=== PATIENT | male | born 1970 | race Caucasian/White ===

== ENCOUNTER 2022-07-02 15:43 | Emergency (ER) | payer OTHER ==
[~2022-07-02] VITALS: Ht 170.2 cm; Wt 83.0 kg
[2022-07-02 15:50] VITALS: BP 144/91
[2022-07-02] MEDS ORDERED: IBUPROFEN 600 MG TAB PO ONE (15:55)
[2022-07-02] MEDS ORDERED: PROPOFOL 200 MG/20 ML VIAL IV ONE ×2 (16:45→17:30)
--- NOTE | 2022-07-02 17:23 | NUR ---
Sedation consent signed by pt and ERMD. Pt connected to Zoll, BP, ETCo2, on 2LNC. 1723- RT bedside 1724- ERMD bedside. Timeout performed. 1726- Pt RASS 0. Procedure started 10cc Propofol pushed by Dr. Fernandez 1727- Pt RASS -1 1728- 10cc Propofol pushed by Dr. Fernandez 1729- Pt RASS -3 1731- Procedure completed Pt RASS -3 1740- Xray bedside Pt RASS -2 1750- Pt RASS -1 1805- Pt awake, alert, with no complaints. RASS 0 No complications noted. Vital signs- 1721- 131/88, HR 104, 99% 2LNC, 15RR, CO2-31 1725- 137/84, HR 99, 99% 2LNC, 22RR, CO2-32 1730-150/93, HR 105, 100% 2LNC, 20RR CO2- 35 1735- 124/70, HR 85, 99% 2LNC,16RR, CO2- 34 1740-127/69, HR 87, 99% 2LNC, 18RR, CO2- 36 1745-122/70, HR 80, 99% 2LNC, 20RR, CO2-38 1800- 120/74, HR 78, 99% 2LNC, 20RR, CO2- 32 1815- 137/82, HR 83, 98% RA, 18RR, CO2-34
--- NOTE | 2022-07-02 17:45 | NUR ---
REQUEST FOR SERVICE FOR CONSCIOUS SEDATION. PT ON 2 L NASAL CANNULA WITH ETCO2 CO2 MONITOR. CO2 DURING SEDATION WAS 35-39, BLOOD PRESSURE WAS STABLE. SATURATION REMAINED ABOVE 92%. RESPIRATORY RATE 18-25. NO DISTRESS NOTED.
--- NOTE | 2022-07-02 19:30 | NUR ---
RECEIVED AWAKE AND ALERT, S/P LEFT SHOULDER DISLOCATION REDUCTION. MT STATES HE FEELS MUCH BETTER. LEFT ARM SLING IN PLACE.
[2022-07-02] MEDS ORDERED: NAPR-54 PO (19:44)
[2022-07-02 19:55] VITALS: BP 144/91
== END 2022-07-02 19:55 | disposition home or self-care (01) ==
LOC: MED 15:43
DX: S43.015A Anterior dislocation of left humerus, initial encounter (principal); I10 Essential (primary) hypertension; Z79.899 Other long term (current) drug therapy; W18.30XA Fall on same level, unspecified, initial encounter; Y93.23 Activity, snow (alpine) (downhill) skiing, snowboarding, sledding, tobogganing and snow tubing; Y92.89 Other specified places as the place of occurrence of the external cause; Y99.8 Other external cause status
CPT/HCPCS: 23650; 73020; 73030; 73060; 94760; 94770; 99285; G0500; J2704; Q0092